=== PATIENT | male | born 1965 | race American Indian/Alaskan Native ===

== ENCOUNTER 2017-07-18 09:29 | Emergency (ER) | payer SELFPAY ==
[2017-07-18 09:41] VITALS: BP 175/132
--- NOTE | 2017-07-18 10:09 | XRay Report ---
Chest 2 views: History: Shortness of breath. Findings: Cardiomegaly. Trachea is midline. Interstitial thickening with pulmonary venous congestion bilaterally. Normal CP angles. Minimal pleural thickening bilaterally. Impression: Probable early CHF or chronic interstitial lung disease.
[2017-07-18 10:35] LABS: Basophils # (Auto) 0.1 K/mm3 (0.0-0.1); Basophils % (Auto) 0.8 % (0.0-1.8); Eosinophils # (Auto) 0.2 K/mm3 (0.0-0.4); Eosinophils % (Auto) 2.4 % (0.0-4.3); Hematocrit 42.2 % (35.5-45.6); Hemoglobin 14.4 gm/dl (11.8-15.2); Lymphocytes % (Auto) 13.8 % (13.4-35.0); Mean Corpuscular HGB Conc 34 % (32-34); Mean Corpuscular Hemoglobin 32 pg (28-32); Mean Corpuscular Volume 94 fl (84-94); Monocytes # (Auto) 0.3 K/mm3 (0.0-0.8); Monocytes % (Auto) 4.4 % (0.0-7.3); Platelet Count 153 K/mm3 (140-440); Red Blood Count 4.48 M/mm3 (3.65-5.03); Red Cell Distribution Width 15.7 % (13.2-15.2)
[2017-07-18 10:44] LABS: INR 0.94 (0.87-1.13)
[2017-07-18 10:45] LABS: Partial Thromboplastin Time 26.9 Sec. (24.2-36.6)
[2017-07-18 10:47] LABS: Calcium 8.7 mg/dL (8.4-10.2)
[2017-07-18 10:49] LABS: Creatine Kinase MB 2.5 ng/mL (0.0-4.0)
== END 2017-07-18 12:30 | disposition other institution (70) ==
LOC: ED 09:29
DX: R06.02 Shortness of breath (principal); Z53.21 Procedure and treatment not carried out due to patient leaving prior to being seen by health care provider
CPT/HCPCS: 36415; 71046; 80048; 82550; 82553; 84484; 85025; 85610; 85730